=== PATIENT | male | born 1935 | race Caucasian/White ===

== ENCOUNTER → 2016-11-28 | Outpatient (CLI) | payer OTHER | LOC: BHLMT 11:00 | PROVIDERS: ATTEND Internal Medicine Cardiovascular Disease | DX: I48.0 Paroxysmal atrial fibrillation (principal); G45.9 Transient cerebral ischemic attack, unspecified; G31.84 Mild cognitive impairment of uncertain or unknown etiology; I65.29 Occlusion and stenosis of unspecified carotid artery | CPT/HCPCS: 93005-PO ==

== ENCOUNTER 2017-01-17 10:33 | Emergency (ER) | payer OTHER ==
[2017-01-17 10:56] VITALS: TEMP 97.3
--- NOTE | 2017-01-17 11:19 | EDPHY ---
H & P Time Seen by Provider: 01/17/17 10:38 HPI/ROS: CHIEF COMPLAINT: Rosen malfunction HISTORY OF PRESENT ILLNESS: The patient is a 81-year-old male with a history of urinary issues including TURP and fairly recent suprapubic catheter placement. Since last night the patient's catheter is not been draining. He has not felt distended. He has had multiple episodes of normal urination through his urethra. He denies any flank pain. No abdominal pain. No nausea vomiting. No fever or chills. REVIEW OF SYSTEMS: My complete review of systems is negative except as mentioned in the HPI. Past Medical/Surgical History: Includes prostate cancer, Past surgical history: Includes TURP, lumbar surgery, right ankle surgery, detached retina Social history: The patient does not smoke. Smoking Status: Never smoked Physical Exam: Vitals noted GENERAL: Well-appearing, in no acute distress, alert. HEENT: Eyes normal to inspection, normal pharynx, no signs of dehydration. NECK: No thyromegaly, no lymphadenopathy, supple. RESPIRATORY: Clear to auscultation bilaterally, no rales, rhonchi or wheezing. CVS: Regular rate and rhythm, no rubs, murmurs, or gallops. ABDOMEN: Soft, nontender, nondistended, no organomegaly. Patient has a suprapubic catheter. There is no surrounding discharge. There is no erythema or warmth. BACK: Normal to inspection, no CVA tenderness. SKIN: Normal color, no rash, warm, dry. No pallor. EXTREMITIES: No pedal edema, no calf tenderness, no Homans sign or cords, no joint swelling. NEURO/PSYCH: Alert and oriented, normal mood and affect, normal motor sensory exam. Constitutional: Initial Vital Signs Temperature (C) 36.3 C 01/17/17 10:52 Heart Rate 64 01/17/17 10:52 Respiratory Rate 18 01/17/17 10:52 Blood Pressure 143/99 H 01/17/17 10:52 O2 Sat (%) 91 L 01/17/17 10:52 O2 Delivery Mode Room Air Allergies/Adverse Reactions: No Known Allergies Allergy (Verified 01/17/17 10:55) Home Medications: Medication Instructions Recorded Lutein [LUTEIN] PO 07/22/10 Tamsulosin HCl [Flomax] 0.8 mg PO DAILY8 07/22/10 Cephalexin [Keflex (*)] 500 mg PO QID 7 Days 01/17/17 Medical Decision Making ED Course/Re-evaluation: In the emergency department patient had his catheter irrigated. There were some small blood clots. Flowed normally after irrigation. Urine was sent to the lab. UA: Urine is positive for blood and white cells. Please refer to the UA. I discussed the results with the patient and his family. Patient was given Keflex 500 mg orally. He was given a prescription upon discharge. I answered all his questions. He was given warnings prior to leaving. Differential Diagnosis: The patient appears well. I feel his symptoms are secondary to renal insufficiency. I do not feel he needs story studies drawn at this time. Patient's Rosen is working well after irrigation. I doubt false track. Patient will have close follow-up with his urologist to determine the underlying source of his urinary tract issues. - Data Points Laboratory Results: 01/17/17 11:10 Urine Color YELLOW Urine Appearance CLOUDY Urine pH 6.5 (5.0-7.5) Ur Specific [place] 1.015 (1.002-1.030) Urine Protein 1+ H (NEGATIVE) Urine Ketones NEGATIVE (NEGATIVE) Urine Blood 3+ H (NEGATIVE) Urine Nitrate NEGATIVE (NEGATIVE) Urine Bilirubin NEGATIVE (NEGATIVE) Urine Urobilinogen 0.2 EU EU (0.2-1.0) Ur Leukocyte Esterase 3+ H (NEGATIVE) Urine RBC >182 /hpf H /hpf (0-3) Urine WBC >182 /hpf H /hpf (0-3) Ur Epithelial Cells TRACE /lpf /lpf (NONE-1+) Calcium Oxalate Crystal TRACE /hpf /hpf (NONE-1+) Urine Bacteria 4+ /hpf H /hpf (NONE SEEN) Hyaline Casts 0-1 /lpf /lpf (0-1) Urine Glucose NEGATIVE (NEGATIVE) Departure - Departure Disposition: Home, Routine, Self-Care Clinical Impression: Suprapubic catheter dysfunction Qualifiers: Encounter type: initial encounter Qualified Code(s): T83.010A - Breakdown ( mechanical) of cystostomy catheter, initial encounter UTI (urinary tract infection) Qualifiers: Urinary tract infection type: catheter-associated UTI Indwelling urinary catheter type: cystostomy catheter Encounter type: initial encounter Qualified Code(s): T83.510A - Infection and inflammatory reaction due to cystostomy catheter, initial encounter; N39.0 - Urinary tract infection, site not specified Condition: Good Instructions: How to Care for Your Suprapubic Catheter (ED), Urinary Tract Infection in Men (ED) Additional Instructions: Return with Rosen malfunction, abdominal pain, vomiting, fever or any other concerns. Referrals: Tashi Yanez MD [Medical Doctor] - 5-7 days, if not improved Prescriptions: Cephalexin [Keflex (*)] 500 mg PO QID 7 Days
[2017-01-17 11:28] LABS: COLOR YELLOW; LEUKOCYTE ESTERASE,URINE 3+ (NEGATIVE); NITRITE,URINE NEGATIVE (NEGATIVE); PH,URINE 6.5 (5.0-7.5)
[2017-01-17 11:40] LABS: BACTERIA 4+ /hpf (NONE SEEN); HYALINE CASTS 0-1 /lpf (0-1); RBC,URINE >182 /hpf (0-3); WBC,URINE >182 /hpf (0-3)
[2017-01-17] MEDS ORDERED: CEPHALEXIN 500 MG CAP PO ONE (11:55)
[2017-01-17 12:18] VITALS: BP 130/80; PULSE 72; RESP 14; O2SAT 92
== END 2017-01-17 12:21 | disposition home or self-care (01) ==
LOC: CED 10:33
DX: T83.010A Breakdown (mechanical) of cystostomy catheter, initial encounter (principal); T83.510A Infection and inflammatory reaction due to cystostomy catheter, initial encounter; N39.0 Urinary tract infection, site not specified; B96.20 Unspecified Escherichia coli [E. coli] as the cause of diseases classified elsewhere; Z85.46 Personal history of malignant neoplasm of prostate; Y82.8 Other medical devices associated with adverse incidents
CPT/HCPCS: 81003-PO; 81015-PO